=== PATIENT | male | born 1950 | race Caucasian/White ===

== ENCOUNTER 2018-09-06 11:35 | Outpatient (CLI) | payer MEDICARE ==
[2018-09-06 13:52] LABS: Hemoglobin 14.1 g/dL (14.0-18.0); Mean Corpuscular HGB CONC 31.7 g/dL (32.0-36.0); Mean Corpuscular Hemoglobin 30.3 pg (27.0-31.0); Mean Corpuscular Volume 95.5 fL (78.0-98.0); Mean Platelet Volume 8.6 fL (7.4-10.4); Platelet Count 147 thou/uL (130-400); Red Blood Cell (RBC) Count 4.67 mill/uL (4.70-6.10)
[2018-09-06 13:55] LABS: Bilirubin Negative (Negative); Blood, Urine Negative (Negative); Glucose, Urine (Dipstick) Negative (Negative); Leukocyte Negative (Negative); Nitrite Negative (Negative); Protein, Urine (Dipstick) Negative (Neg-Trace); Urobilinogen 0.2 mg/dL (Less than 2)
[2018-09-06 14:00] LABS: INR-International Normal Ratio 1.8; PTT 35.8 SEC (22.9-36.1); Prothrombin Time 20.4 SEC (12.0-14.7)
[2018-09-06 14:14] LABS: Anion Gap 10 mmol/L (10-20); BUN (Urea Nitrogen) 11 mg/dL (8.4-25.7); Calc. Creatinine Clearance 0 mL/min (70-130); Calcium 9.4 mg/dL (7.8-10.44); Carbon Dioxide 27 mmol/L (23-31); Chloride 105 mmol/L (98-107); Estimated GFR-MDRD Greater than 90; Glucose 89 mg/dL (80-115); Potassium 4.1 mmol/L (3.5-5.1); Sodium 138 mmol/L (136-145)
[2018-09-06 14:33] LABS: Clarity Clear (Clear)
[2018-09-06 15:03] LABS: Bacteria/HPF None Seen HPF (None Seen); RBC/HPF None Seen HPF (0-3); Squamous Epithelial 0-3 HPF (0-3); WBC/HPF None Seen HPF (0-3)
--- NOTE | 2018-09-07 17:29 | EKG ---
Test Reason : Blood Pressure : / mmHG Vent. Rate : 054 BPM Atrial Rate : 054 BPM P-R Int : 138 ms QRS Dur : 082 ms QT Int : 444 ms P-R-T Axes : 077 068 070 degrees QTc Int : 421 ms Sinus bradycardia T wave abnormality, consider anterior ischemia Abnormal ECG Confirmed by ISREAL HARTMAN ([id number]) on 09/07/2018 5:29:23 PM Referred By: FAUSTINO Confirmed By:ISREAL HARTMAN
== END 2018-09-06 11:36 | disposition home or self-care (01) ==
LOC: LABBT 11:35
PROVIDERS: ATTEND Urology
DX: Z01.818 Encounter for other preprocedural examination (principal); N40.1 Benign prostatic hyperplasia with lower urinary tract symptoms; N52.9 Male erectile dysfunction, unspecified; G89.29 Other chronic pain; N48.89 Other specified disorders of penis; R35.1 Nocturia
CPT/HCPCS: 80048; 81001; 85027; 85610; 85730; 87086; 93005; 93010

== ENCOUNTER 2018-09-15 06:28 | Observation (INO) | payer MEDICARE ==
[2018-09-15] MEDS ORDERED: Levofloxacin 500 mg/D5W 100 ml Premix Bag ONE (07:49)
--- NOTE | 2018-09-15 07:52 | RAD ---
KUB: 09/15/2018 COMPARISON: None HISTORY: Preoperative patient FINDINGS: The bowel gas pattern is nonobstructed. Postsurgical clips overlie the inferior pubic ramus on the right. IMPRESSION: No acute findings.
[2018-09-15 08:09] LABS: INR-International Normal Ratio 1.1; Prothrombin Time 13.9 SEC (12.0-14.7)
[2018-09-15] MEDS ORDERED: HYDROmorphone 0.5 MG/0.5 ML SYRINGE ONE (09:02)
[2018-09-15] MEDS ORDERED: Fentanyl 100 MCG/2 ML VIAL ONE (09:02)
[2018-09-15] MEDS ORDERED: HYDROmorphone 2 MG/ML VIAL SLOW IVP PRN (09:50)
[2018-09-15] MEDS ORDERED: Ondansetron HCl/PF 4 MG/2 ML Vial IVP PRN (09:50)
[2018-09-15] MEDS ORDERED: Promethazine HCl 25 MG/ML VIAL SLOW IVP PRN (09:50)
[2018-09-15] MEDS ORDERED: Promethazine HCl 25 MG/ML VIAL IM PRN (09:50)
[2018-09-15] MEDS ORDERED: PACU-Morphine 4MG/ML VIAL SLOW IVP PRN (09:50)
[2018-09-15] MEDS ORDERED: hydrALAZINE 20 MG/ML VIAL SLOW IVP PRN (10:10)
[2018-09-15] MEDS ORDERED: Acetaminophen 500 MG TAB PO PRN (10:10)
[2018-09-15] MEDS ORDERED: Bisacodyl 10 MG SUPP PR PRN (10:10)
[2018-09-15] MEDS ORDERED: Mag-Al 1200 mg/1200 mg/30 ML UDCUP PO PRN (10:10)
[2018-09-15] MEDS ORDERED: Oxybutynin 5 MG TAB PO PRN (10:10)
[2018-09-15] MEDS ORDERED: Phenazopyridine HCl 97.5 MG TABLET PO PRN (10:10)
[2018-09-15] MEDS ORDERED: diphenhydrAMINE 25 MG CAP PO PRN (10:10)
[2018-09-15] MEDS ORDERED: Ondansetron PF 4 MG/2 ML Vial IVP PRN (10:10)
[2018-09-15] MEDS ORDERED: traMADol HCl 50 MG TAB PO PRN (10:12)
--- NOTE | 2018-09-15 11:23 | OP ---
DATE OF PROCEDURE: 09/15/2018 SERVICE: Urology. POSTOPERATIVE DIAGNOSES: Benign prostatic hyperplasia with obstruction. POSTOPERATIVE DIAGNOSES: Benign prostatic hyperplasia with obstruction. PROCEDURE PERFORMED: Transurethral resection of prostate. INDICATIONS FOR PROCEDURE: Mr. Long is a 67-year-old white male, who presented with lower urinary tract symptoms and significant BPH. Cystoscopy demonstrated that he was not a suitable candidate for UroLift and so, he elected to proceed forward with the TURP due to his median lobe. Risks and benefits of surgery were discussed and he has agreed to proceed forward. DESCRIPTION OF PROCEDURE: After identification of armband and verification of consent, the patient was brought back to the operating room, where he underwent general anesthesia with an LMA. He was placed in dorsal lithotomy position, prepped and draped in usual sterile fashion. After appropriate time-out, a lubricated 26-Mexican resectoscope sheath was placed with ease through the urethra into the bladder with visual obturator. The visual obturator was then switched out for the bipolar prostate resection loop. Resection was started at the median lobe, which was resected fully until it was flushed with the bladder neck. The prostate was then resected circumferentially from the bladder neck to the verumontanum until we were close to, but not through the capsule. Upon completion, the prostate was wide open. The 5 and 7 o'clock relaxing bladder neck incisions were performed and the intervening tissue removed with resection. Meticulous hemostasis was then performed with the coag function on the bipolar loop. Upon completion, both ureters were in the orthotopic location unharmed on inspection. The prostate chips were evacuated out using the [employer] evacuator and manually through the resectoscope sheath. Meticulous hemostasis was then reperformed on any remaining bleeders until there was none encountered. All prostate chips had been evacuated. The prostate fossa was wide open. The resectoscope sheath was then removed and the 22-Mexican three-way Lynn catheter on CBI was placed into the patient's bladder, a 30 mL of sterile water placed into the balloon. The patient was then awakened, taken to PACU for recovery in stable condition. COMPLICATIONS: None. ESTIMATED BLOOD LOSS: Minimal. RETAINED TUBES AND DRAINS: A 22-Mexican three-way Lynn catheter on CBI. SPECIMEN: Prostate chips. DISPOSITION: The patient will be kept in the hospital overnight. We will plan for a void trial tomorrow and discharge home. Of note, the patient is on a Lovenox bridge for his aortic valve replacement and will resume his Coumadin shortly. Job ID: [id number]
[2018-09-15] MEDS ORDERED: Morphine 2 MG/ML SYRINGE SLOW IVP PRN (11:52)
[2018-09-15] MEDS ORDERED: Lidocaine 1% PF 5 ML VIAL ONE (13:57)
[2018-09-15] MEDS ORDERED: Ondansetron PF 4 MG/2 ML Vial ONE (13:57)
[2018-09-15] MEDS ORDERED: Dexamethasone 20 MG/5 ML VIAL ONE (13:57)
[2018-09-15] MEDS ORDERED: Ketorolac Tromethamine 30 MG/ML VIAL ONE (13:57)
[2018-09-15] MEDS ORDERED: ePHEDrine 50 MG/ML VIAL ONE (13:57)
[2018-09-15] MEDS ORDERED: PROPOFOL 200 MG/20 ML VIAL ONE (13:57)
[2018-09-15] MEDS ORDERED: Warfarin Sodium 7.5 MG TAB PO SCH ×2 (17:00)
[2018-09-15] MEDS: Famotidine 20 MG TAB PO SCH (21:10)
[2018-09-15] MEDS: Docusate 100 MG CAP PO SCH (21:10)
[2018-09-15] MEDS: Enoxaparin Sodium 80 MG/0.8 ML SYRINGE SC SCH (21:10)
[2018-09-16 04:16] LABS: #Eosinphils 0.1 thou/uL (0.0-0.7); #Lymphocytes 1.1 thou/uL (1.20-3.40); #Monocytes 0.7 thou/uL (0.11-0.59); #Neutrophils 6.3 thou/uL (1.40-6.50); %Basophils 0.1 % (0.0-1.0); %Eosinophils 0.7 % (0.0-10.0); %Lymphocytes 13.5 % (21.0-51.0); %Monocytes 8.1 % (0.0-10.0); %Neutrophils 77.5 % (42.0-75.0); Hemoglobin 13.2 g/dL (14.0-18.0); Mean Corpuscular HGB CONC 32.1 g/dL (32.0-36.0); Mean Corpuscular Hemoglobin 30.5 pg (27.0-31.0); Mean Platelet Volume 8.3 fL (7.4-10.4); Platelet Count 154 thou/uL (130-400); RBC Distribution Width 12.8 % (11.5-14.5); Red Blood Cell (RBC) Count 4.34 mill/uL (4.70-6.10); White Blood Cell (WBC) Count 8.1 thou/uL (4.8-10.8)
[2018-09-16 04:28] LABS: Prothrombin Time 13.4 SEC (12.0-14.7)
[2018-09-16 05:17] LABS: Anion Gap 11 mmol/L (10-20); BUN (Urea Nitrogen) 12 mg/dL (8.4-25.7); Calc. Creatinine Clearance 118 mL/min (70-130); Calcium 8.2 mg/dL (7.8-10.44); Carbon Dioxide 22 mmol/L (23-31); Chloride 108 mmol/L (98-107); Estimated GFR-MDRD Greater than 90; Glucose 125 mg/dL (80-115); Potassium 3.9 mmol/L (3.5-5.1); Sodium 137 mmol/L (136-145)
[2018-09-16] MEDS ORDERED: Levothyroxine Sodium 50 MCG TAB PO SCH (06:00)
[2018-09-16] MEDS: Famotidine 20 MG TAB PO SCH (08:48)
[2018-09-16] MEDS: Docusate 100 MG CAP PO SCH (08:48)
[2018-09-16] MEDS: Enoxaparin Sodium 80 MG/0.8 ML SYRINGE SC SCH (08:50)
[2018-09-16] MEDS ORDERED: CICLOPIROX TOP SCH (09:00)
[2018-09-16] MEDS ORDERED: Loratadine 10 MG TAB PO SCH (09:00)
[2018-09-16 12:11] VITALS: BP 118/76; TEMP 97.7
[2018-09-16 13:37] VITALS: BMI 24.5
--- NOTE | 2018-09-16 15:16 | PRG ---
DATE OF SERVICE: 09/16/2018 SUBJECTIVE: The patient is doing well. No complaints. Urine is relatively clear. No bladder spasms. OBJECTIVE: VITAL SIGNS: Temperature 97.7, pulse 80, respirations 18, blood pressure 118/76, saturation 96% on room air. GENERAL: No apparent distress. Communicative and alert. CARDIOVASCULAR: Regular rate and rhythm. ABDOMEN: Soft, nontender, and nondistended. : Lynn catheter in place with jeromy urine. CBI off. EXTREMITIES: SCDs in place. LABORATORY DATA: On laboratory evaluation, the full set of labs are in the [facility] system which I have reviewed. Of note, the patient's hemoglobin is 13.2, creatinine is 0.7. ASSESSMENT AND PLAN: A 67-year-old white male status post transurethral resection of the prostate on postop day 1. We will perform void trial today. The patient is already on Lovenox. We will continue Lovenox bridge until INR is therapeutic. I have instructed him to remain on Lovenox until his INR is in the normal range, at which time his home care assistant or PCP can take him off the Lovenox and leave him on the Coumadin. He should continue light activities and hydrate properly so long as he can void after catheter removal without any significant hematuria. He can be discharged home and his followup has already arranged. Job ID: [id number]
[2018-09-16] MEDS ORDERED: Warfarin Sodium 5 MG TAB PO SCH (17:00)
== END 2018-09-16 15:42 | disposition home or self-care (01) ==
LOC: SDC 06:28 → SURG A 10:10
PROVIDERS: ADMIT Urology; ATTEND Urology
PROC: 0VT08ZZ Resection of Prostate, Via Natural or Artificial Opening Endoscopic (ICD-10-PCS; principal; 2018-09-15)
DX: N40.1 Benign prostatic hyperplasia with lower urinary tract symptoms (principal); R35.1 Nocturia; E03.9 Hypothyroidism, unspecified; N52.9 Male erectile dysfunction, unspecified; E78.5 Hyperlipidemia, unspecified; G89.29 Other chronic pain; N48.89 Other specified disorders of penis; Z79.899 Other long term (current) drug therapy; Z87.891 Personal history of nicotine dependence
CPT/HCPCS: 52601; 74018; 80048; 85025; 85610 ×2; 85730; 88305; 96372 ×2; G0378; 36415; J1100; J1170; J1650; J1885; J1956; J2001; J2405; J2704; J3010; J3490